=== PATIENT | female | born 1965 | race Caucasian/White ===

== ENCOUNTER 2019-03-14 22:25 | Inpatient (IN) | payer OTHER ==
[2019-03-14 23:20] LABS: #Basophils 0.1 thou/uL (0.0-0.2); #Eosinphils 0.1 thou/uL (0.0-0.7); #Lymphocytes 2.1 thou/uL (1.20-3.40); #Monocytes 0.7 thou/uL (0.11-0.59); #Neutrophils 13.2 thou/uL (1.40-6.50); %Basophils 0.6 % (0.0-1.0); %Eosinophils 0.7 % (0.0-10.0); %Monocytes 4.2 % (0.0-10.0); %Neutrophils 81.5 % (42.0-75.0); Hemoglobin 14.9 g/dL (12.0-16.0); Mean Corpuscular HGB CONC 33.8 g/dL (32.0-36.0); Mean Corpuscular Hemoglobin 31.5 pg (27.0-31.0); Mean Corpuscular Volume 93.2 fL (78.0-98.0); Mean Platelet Volume 9.5 fL (7.4-10.4); Platelet Count 192 thou/uL (130-400); RBC Distribution Width 11.3 % (11.5-14.5); Red Blood Cell (RBC) Count 4.73 mill/uL (4.20-5.40); White Blood Cell (WBC) Count 16.2 thou/uL (4.8-10.8)
[2019-03-14 23:26] LABS: PTT 26.6 SEC (22.9-36.1); Prothrombin Time 12.7 SEC (12.0-14.7)
[2019-03-14] MEDS ORDERED: Fentanyl 100 MCG/2 ML VIAL ONE (23:27)
[2019-03-14 23:41] LABS: ALT (SGPT) 23 U/L (8-55); AST (SGOT) 18 U/L (5-34); Albumin 4.5 g/dL (3.5-5.0); Alkaline Phosphatase 66 U/L (40-150); Anion Gap 11 mmol/L (10-20); BUN (Urea Nitrogen) 19 mg/dL (9.8-20.1); Bilirubin, Total 0.6 mg/dL (0.2-1.2); Calc. Creatinine Clearance 0 mL/min (70-130); Calcium 9.5 mg/dL (7.8-10.44); Carbon Dioxide 28 mmol/L (22-29); Chloride 100 mmol/L (98-107); Estimated GFR-MDRD 65; Globulin 2.4 g/dL (2.4-3.5); Glucose 111 mg/dL (70-105); Potassium 3.6 mmol/L (3.5-5.1); Protein, Total 6.9 g/dL (6.0-8.3); Sodium 135 mmol/L (136-145)
--- NOTE | 2019-03-14 23:45 | RAD ---
2 views right hip: 03/14/2019 COMPARISON: None HISTORY: Fall, trauma, pain FINDINGS: There is an obliquely oriented proximal right femoral neck fracture with impaction as well as proximal and lateral displacement of the distal fracture fragment. No evidence for dislocation. IMPRESSION: Right femoral neck fracture.
--- NOTE | 2019-03-14 23:45 | RAD ---
Portable frontal chest radiograph: 03/14/2019 COMPARISON: None HISTORY: Preoperative patient, right femoral neck fracture FINDINGS: Lungs are clear. Heart and mediastinal contours appear within normal limits. IMPRESSION: No acute findings.
[2019-03-15] MEDS ORDERED: Dextrose 5% in Water 1,000 ML IV PRN (00:51)
[2019-03-15] MEDS ORDERED: hydrALAZINE 20 MG/ML VIAL SLOW IVP PRN (00:51)
[2019-03-15] MEDS ORDERED: Morphine 2 MG/ML SYRINGE SLOW IVP PRN (00:51)
[2019-03-15] MEDS ORDERED: Cyclobenzaprine 10 MG TAB PO PRN (00:51)
[2019-03-15] MEDS ORDERED: Ondansetron PF 4 MG/2 ML Vial IVP PRN (00:51)
[2019-03-15] MEDS ORDERED: Dextrose 50% Abboject 50 ML SYRINGE SLOW IVP PRN (00:51)
[2019-03-15] MEDS ORDERED: Ondansetron ODT 4 MG TAB PO PRN (00:51)
[2019-03-15] MEDS ORDERED: Ketorolac Tromethamine 30 MG/ML VIAL IVP SCH (01:00)
[2019-03-15] MEDS ORDERED: Acetaminophen 1,000 MG in Premix Bag 1 BAG IVPB SCH (01:00)
[2019-03-15] MEDS: Sodium Chloride 0.9% 1,000 ML IV SCH ×2 (02:27→10:00)
[2019-03-15] MEDS: Ketorolac Tromethamine 30 MG/ML VIAL IVP SCH ×4 (02:32→17:54)
[2019-03-15 06:10] LABS: #Monocytes 0.3 thou/uL (0.11-0.59); #Neutrophils 11.6 thou/uL (1.40-6.50); %Basophils 0.3 % (0.0-1.0); %Eosinophils 0.3 % (0.0-10.0); %Lymphocytes 7.8 % (21.0-51.0); %Monocytes 2.4 % (0.0-10.0); %Neutrophils 89.3 % (42.0-75.0); Hemoglobin 14.4 g/dL (12.0-16.0); Mean Corpuscular HGB CONC 33.7 g/dL (32.0-36.0); Mean Corpuscular Hemoglobin 31.3 pg (27.0-31.0); Mean Corpuscular Volume 92.9 fL (78.0-98.0); Platelet Count 183 thou/uL (130-400); RBC Distribution Width 11.2 % (11.5-14.5); Red Blood Cell (RBC) Count 4.61 mill/uL (4.20-5.40)
[2019-03-15 06:31] LABS: Anion Gap 11 mmol/L (10-20); BUN (Urea Nitrogen) 14 mg/dL (9.8-20.1); Calc. Creatinine Clearance 101 mL/min (70-130); Calcium 8.8 mg/dL (7.8-10.44); Carbon Dioxide 24 mmol/L (22-29); Chloride 103 mmol/L (98-107); Estimated GFR-MDRD 85; Glucose 129 mg/dL (70-105); Sodium 134 mmol/L (136-145)
--- NOTE | 2019-03-15 08:22 | PDOC.EVN ---
Event Note - Event Note Event Note: Patient seen and examined. Agree with Walter Garcia note. Plans per orthopedics
[2019-03-15] MEDS ORDERED: CEFAZOLIN 2 GM in Premix Bag 1 BAG IVPB SCH (08:30)
--- NOTE | 2019-03-15 08:43 | RAD ---
EXAM: XR Hip Lt 2-3 View PROVIDED CLINICAL HISTORY: Pain FINDINGS: There is no evidence for fracture or other acute osseous abnormality. Alignment appears anatomic. Shima nt spaces appear preserved. IMPRESSION: No evidence for an acute osseous abnormality. If there is persistent clinical concern, conservative m anagement and follow-up imaging advised.
[2019-03-15] MEDS: Famotidine 20 MG TAB PO SCH ×2 (08:47→20:30)
[2019-03-15] MEDS: Calcium Carbonate + Vit D 1 TAB PO SCH ×2 (08:47→20:30)
[2019-03-15] MEDS: Escitalopram Oxalate 10 mg Tablet PO SCH (08:47)
[2019-03-15] MEDS: Rosuvastatin 10 MG TAB PO SCH (08:47)
--- NOTE | 2019-03-15 08:51 | CON ---
DATE OF CONSULTATION: HISTORY OF PRESENT ILLNESS: We were asked by Trauma in the ER to see the patient. The patient was in normal state of health yesterday when she slipped and fell on a right hip on a tile floor. She was not able to walk after this. No loss of consciousness. No head pain. No numbness or tingling down the right lower extremity. As per the other note, the patient fell going up the stairs a few weeks ago and has had continued left hip pain also. I am going to get a stat x-ray before we hopefully are able to do a total hip replacement on the right. The patient is at bedside with her . Currently, no other complaints. PAST MEDICAL HISTORY: Positive for osteoporosis and tremors in arms. PAST SURGICAL HISTORY: x3, umbilical hernia repair, D and C x2, and she has had some dental prosthesis placed. PAST PSYCHIATRIC HISTORY: A little bit of anxiety. SOCIAL HISTORY: Very rare drinker. No drug or nicotine use. Resides at home with her family. FAMILY HISTORY: Noncontributory for this visit. ALLERGIES: AMOXICILLIN/AUGMENTIN MAKES HER NAUSEATED AND A LITTLE LOOPY. SHE IS ALSO ALLERGIC TO LATEX. CURRENT MEDICATIONS: Lexapro. REVIEW OF SYSTEMS: Tremors in arms, but denies any chest pain, shortness of breath, bowel or bladder issues, and right hip pain. Rest review of systems is negative. PHYSICAL EXAMINATION: GENERAL: Well-nourished, well-developed female, alert, pleasant, in no acute distress. Speech clear. Affect pleasant. Answers questions appropriately. She is alert and oriented x3. HEENT: Normal exam. Face symmetric. Tongue is midline. NECK: Supple. Trachea midline. EXTREMITIES: Upper extremities equal size, shape, symmetry. Normal bulk and tone. Movements equal as are sensations. She has an IV in her right antecubital. Lower extremity exam, pain to the right hip. Remarkably, she has some pain in the left hip also. Otherwise, both extremities, equal size, shape, symmetry, and normal bulk and tone with good sensations and movement of her feet. DP and PT pulses are intact. PELVIS: No plane with rocking. RESPIRATORY: No acute distress. Breathing well. Respirations 16 a minute. ASSESSMENT: Right hip fracture. PLAN: I spoke to the patient about doing a total hip replacement. I went over the risks and benefits of surgery. Their questions and concerns have been addressed and they are amenable to go forth with surgery. We just need to get equipment in. I let the family know that we will keep her n.p.o. until we know if we can get equipment in today. If we are not able to, we will let her have a regular diet, and I will discuss this with Trauma also. The patient and family are happy with the plan. We will work on getting equipment here. We will put her on the surgery schedule today tentatively for surgery. Job ID: [id number]
[2019-03-15] MEDS ORDERED: Fentanyl 100 MCG/2 ML VIAL ONE (11:22)
[2019-03-15] MEDS ORDERED: Famotidine/PF 20 mg/2ml Vial ONE (11:22)
[2019-03-15] MEDS ORDERED: traMADol HCl 50 MG TAB PO PRN (11:56)
[2019-03-15] MEDS ORDERED: Gabapentin 300 MG CAP PO PRN (11:56)
[2019-03-15] MEDS ORDERED: Ibuprofen 600 MG TAB PO PRN (11:56)
[2019-03-15] MEDS ORDERED: Neomycin-Polymyxin 1 ML AMP ONE (11:58)
[2019-03-15] MEDS ORDERED: Clindamycin/D5W 900 mg/50 ml Premix Bag ONE (12:00)
[2019-03-15] MEDS ORDERED: traMADol HCl 50 MG TAB PO SCH (12:00)
[2019-03-15] MEDS ORDERED: HYDROmorphone 2 MG/ML VIAL SLOW IVP PRN (13:57)
[2019-03-15] MEDS ORDERED: Ondansetron HCl/PF 4 MG/2 ML Vial IVP PRN (13:57)
[2019-03-15] MEDS ORDERED: Meperidine HCl/PF 25 MG/ML VIAL SLOW IVP PRN (13:57)
[2019-03-15] MEDS ORDERED: Promethazine HCl 25 MG/ML VIAL IM PRN ×2 (13:57→15:46)
[2019-03-15] MEDS ORDERED: Promethazine HCl 25 MG/ML VIAL SLOW IVP PRN (13:57)
[2019-03-15] MEDS ORDERED: Bupivacaine HCl 0.5%/Epinephrine 1:200,000/PF 30 ml Vial ONE (14:03)
[2019-03-15] MEDS ORDERED: Glycopyrrolate 0.2 MG/ML 5 ML SYRINGE ONE ×2 (14:41→16:06)
--- NOTE | 2019-03-15 15:17 | RAD ---
EXAM: XR Pelvis AP STANDARD PROVIDED CLINICAL HISTORY: Postop COMPARISON: 03/14/2019 FINDINGS: Interval right total hip arthroplasty without evidence for an acute abnormality. IMPRESSION: As above.
--- NOTE | 2019-03-15 15:18 | RAD ---
EXAM: XR Hip Rt 1 View PROVIDED CLINICAL HISTORY: Postop COMPARISON: 03/14/2019 FINDINGS: Right lateral view demonstrates postoperative changes of right total hip arthroplasty. IMPRESSION: As above.
[2019-03-15] MEDS ORDERED: Naloxone HCl 0.4 mg/ml Vial IV PRN (15:46)
[2019-03-15] MEDS ORDERED: diphenhydrAMINE 25 MG CAP PO PRN (15:46)
[2019-03-15] MEDS ORDERED: diphenhydrAMINE 50 MG/ML VIAL IM/IV PRN (15:46)
[2019-03-15] MEDS: Acetaminophen 500 MG TAB PO SCH ×2 (15:58→17:53)
[2019-03-15] MEDS ORDERED: Morphine Sulfate 100 MG in Dextrose 5% in Water 98 ML IV SCH (16:00)
[2019-03-15] MEDS ORDERED: Ondansetron PF 4 MG/2 ML Vial ONE (16:06)
[2019-03-15] MEDS ORDERED: PHENYLEPHRINE-NS 100 MCG/ML 10 ML SYRINGE ONE (16:06)
[2019-03-15] MEDS ORDERED: Rocuronium Bromide 10 MG/ML (10ML VIAL) ONE (16:06)
[2019-03-15] MEDS ORDERED: Lidocaine 1% PF 5 ML VIAL ONE (16:06)
[2019-03-15] MEDS ORDERED: Metoclopramide HCl 10 MG/2 ML VIAL ONE (16:06)
[2019-03-15] MEDS ORDERED: Dexamethasone 20 MG/5 ML VIAL ONE (16:06)
[2019-03-15] MEDS ORDERED: PROPOFOL 200 MG/20 ML VIAL ONE (16:06)
--- NOTE | 2019-03-15 18:56 | PRG ---
DATE OF SERVICE: 03/15/2019 SUBJECTIVE: Ms. Sierra is a 53-year-old female, who is status post ground level fall. She sustained a right hip fracture. She underwent ORIF of right hip fracture yesterday. Postop, the patient reports doing good. Pain is well controlled. Vital signs are stable. She developed no fever or shortness of breath. She voiced no concern. OBJECTIVE: GENERAL: The patient is lying down in bed, comfortable with no acute distress. VITAL SIGNS: Temperature 98.3, heart rate 103, respiratory rate 15, O2 saturation 97% on room air, and blood pressure 110/73. LUNGS: Clear bilaterally. HEART: Regular rate and rhythm. ABDOMEN: Soft and nondistended. EXTREMITIES: Neurovascularly intact x4. NEUROLOGY: No focal neurology deficits. ASSESSMENT: Right hip fracture, status post open reduction and internal fixation of right hip fracture, postoperative day zero. PLAN: Plan will be to continue supportive care. Continue pain control. We will start pharmacology, DVT prophylaxis tomorrow. The patient will be working with PT/OT tomorrow. Plan will be placement in rehab facility. Job ID: [id number]
[2019-03-15] MEDS: Clindamycin/D5W 900 MG in Premix Bag 1 BAG IVPB SCH (20:30)
[2019-03-16] MEDS: Acetaminophen 500 MG TAB PO SCH ×5 (00:11→23:09)
[2019-03-16] MEDS: Ketorolac Tromethamine 30 MG/ML VIAL IVP SCH ×5 (00:12→23:10)
--- NOTE | 2019-03-16 00:38 | PRG ---
DATE OF SERVICE: 03/15/2019 SUBJECTIVE: The patient is currently on the surgical floor. She is status post ground level fall, in which she sustained a right hip fracture. The patient today underwent open reduction and internal fixation of the same. She had no reported issues tonight. Her pain is being controlled with a BUSINESS WRITER. She was unable to work with Physical Therapy today due to returning to the floor at a late hour. She denies nausea, but has not tried to eat anything yet. OBJECTIVE: VITAL SIGNS: Stable. The patient is afebrile. GENERAL: The patient is resting comfortably in bed. She is awake, alert, and oriented x3. Ihsan Coma Scale is 15. HEENT: Unremarkable. LUNGS: Clear to auscultation with good inspiratory and expiratory effort. HEART: Regular rate and rhythm. ABDOMEN: Soft, nontender with active bowel sounds. EXTREMITIES: Neurovascularly intact x4. Postop dressing is clean, dry, and intact. ASSESSMENT: 1. Status post ground level fall. 2. Status post open reduction and internal fixation of right hip fracture. PLAN: Plan will be to continue supportive care. Re-evaluate pain control. Discontinue BUSINESS WRITER when appropriate. Begin physical and occupational therapy and begin discussion of placement. Job ID: [id number]
[2019-03-16] MEDS ORDERED: Ibuprofen 600 MG TAB PO PRN (03:00)
[2019-03-16] MEDS: Clindamycin/D5W 900 MG in Premix Bag 1 BAG IVPB SCH ×2 (03:09→18:23)
[2019-03-16 04:30] LABS: Bacteria/HPF None Seen HPF (None Seen); Bilirubin Negative (Negative); Blood, Urine Negative (Negative); Clarity Clear (Clear); Glucose, Urine (Dipstick) 30 mg/dL (Negative); Leukocyte Negative Leu/uL (Negative); Nitrite Negative (Negative); Protein, Urine (Dipstick) 20 mg/dL (Neg-Trace); RBC/HPF 0-3 HPF (0-3); Squamous Epithelial 0-3 HPF (0-3); Urobilinogen Normal mg/dL (Less than 2); WBC/HPF 0-3 HPF (0-3)
[2019-03-16 04:31] LABS: Urine Culture Reflex No No
[2019-03-16] MEDS: Rosuvastatin 10 MG TAB PO SCH (08:33)
[2019-03-16] MEDS: Escitalopram Oxalate 10 mg Tablet PO SCH (08:33)
[2019-03-16] MEDS: Calcium Carbonate + Vit D 1 TAB PO SCH ×2 (08:33→20:06)
[2019-03-16] MEDS: Famotidine 20 MG TAB PO SCH ×2 (08:33→20:06)
[2019-03-16 09:59] LABS: #Lymphocytes 1.3 thou/uL (1.20-3.40); #Monocytes 0.8 thou/uL (0.11-0.59); #Neutrophils 11.7 thou/uL (1.40-6.50); %Basophils 0.1 % (0.0-1.0); %Eosinophils 0.2 % (0.0-10.0); %Lymphocytes 9.3 % (21.0-51.0); %Monocytes 5.7 % (0.0-10.0); %Neutrophils 84.7 % (42.0-75.0); Hemoglobin 9.1 g/dL (12.0-16.0); Mean Corpuscular HGB CONC 33.9 g/dL (32.0-36.0); Mean Corpuscular Hemoglobin 31.5 pg (27.0-31.0); Mean Corpuscular Volume 92.8 fL (78.0-98.0); Mean Platelet Volume 9.7 fL (7.4-10.4); Platelet Count 155 thou/uL (130-400); RBC Distribution Width 11.2 % (11.5-14.5); Red Blood Cell (RBC) Count 2.88 mill/uL (4.20-5.40); White Blood Cell (WBC) Count 13.8 thou/uL (4.8-10.8)
--- NOTE | 2019-03-16 11:54 | OP ---
DATE OF PROCEDURE: 03/15/2019 PREOPERATIVE DIAGNOSIS: Right displaced subcapital femoral neck fracture. POSTOPERATIVE DIAGNOSIS: Right displaced subcapital femoral neck fracture. PROCEDURE PERFORMED: Right total hip arthroplasty. ANESTHESIA: General. ESTIMATED BLOOD LOSS: 300 mL. CONCRETE BATCH PLANT OPERATOR: Marshall. IMPLANTS: [employer] orthopedic surgical system was used with a P2 porous-coated size 7 femoral stem, FMP acetabular liner, and a 48 mm hemispherical shell with 32 mm diameter femoral head. COMPLICATIONS: None. DRAINS: None. SPECIMENS: None. OUTCOME: Satisfactory. INDICATION FOR PROCEDURE: The patient is a 53-year-old lady who sustained a ground level fall and displaced subcapital femoral neck fracture with some marginal comminution as a result of this fall. The patient has a history of severe osteoporosis. Given the combination of osteoporosis, the very distal nature of this fracture and the mild comminution, we discussed treatment options including, but not limited to, cannulated screw stabilization, hemiarthroplasty or total hip arthroplasty. Given her young age, we have opted to proceed with total hip arthroplasty in hopes of speeding her recovery and return to normal activities of daily living. Informed consent has been obtained. I believe all questions have been answered. DESCRIPTION OF PROCEDURE: The patient was brought to the operating room and a time-out performed followed by induction of general anesthesia. Next, she was positioned in the left lateral decubitus position, and a sterile prep and drape was performed of the right lower extremity. Next, a curvilinear incision was made centered over the greater trochanter of the right hip. After skin was sharply incised, dissection was carried down with electrocautery through the subcutaneous fat, exposing the fascia sven and tensor fascia. This was incised in line with skin incision and reflected anteriorly and posteriorly with a Charnley retractor. Next, the trochanteric bursa was swept off the short external rotators and then an elevator was passed under the abductors exposing the piriformis tendon as well as tendons of the superior and inferior gemelli. The short external rotators were taken off as 1 unit using electrocautery on the posterior aspect of the proximal femur. These were tagged with #1 Vicryl and then reflected posteriorly to help protect the sciatic nerve, which was very superficial in its location. Next, a T-capsulotomy was performed and then fractured femoral head was removed. There were fracture lines that extended all the way up to the base of the femoral head as well as down towards the calcar. An oscillating saw was used to make a femoral neck cut approximately 1 cm proximal to the lesser trochanter. Following this cut, attention was placed to the acetabulum. The acetabulum was free of any bony fragments at the base. A starting reamer was placed into the acetabulum and with very gentle pressure, a significant portion of bone was excised consistent with her severe osteoporosis. A second reamer was applied and with this, there was found to be a penetration of the medial wall. Given the extreme fragility of the bone, the cup was then just further widened up to a size 47 but without any further deepening. A 48-mm cup was then inserted with excellent rim fit, very solid compression, and felt to be no need for screw stabilization. Next, a 10-degree offset liner was applied to the cup. Attention was placed back at the femur. This was repaired using the initial opening T-handle awl followed by the lateralizing product handler and then progressive broaching up to a size 7. A trial reduction was then performed with a size 7 stem and found to have good fit and fill with the +4 head. The trial broach was then removed and the final implants prepared. 3 L normal saline was irrigated through the acetabulum as well as the proximal femur and then the femoral stem applied. There was found to be excellent fit and fill. The head was then inserted and the hip reduced and found to have excellent stability in the 90-90 position with internal rotation. At this point, the wound again irrigated, then closed in layers with #1 Vicryl for the capsule, #1 Vicryl to reapproximate the short external rotators, and #1 Vicryl used for the tensor fascia and fascia sven, 0 Vicryl was for Franki's fascia followed by 2-0 Vicryl and chata for the skin. Xeroform gauze and tape dressing was applied to the lateral thigh and then the patient was transferred to recovery room in stable condition. There were no complications. The patient tolerated the procedure well. Job ID: [id number]
--- NOTE | 2019-03-16 12:26 | HP ---
REQUESTING PHYSICIAN: Dr. Jarrett. ATTENDING SURGEON: Dr. Arzate. CONSULTATIONS: Orthopedics, Dr. Jesus. HISTORY OF PRESENT ILLNESS: The patient is a 53-year-old woman, who was in her bathroom this evening when she tripped and fell landing on her right hip. The patient had significant pain, was unable to ambulate, notified her who called 911. The patient was brought to the emergency department by ground EMS, where she underwent evaluation and examination and was noted to have a right femoral neck fracture at which time we were asked to evaluate the patient for admission and obtain Orthopedic consultation. The patient denied loss of consciousness or any syncopal type event before after her fall. ALLERGIES: PENICILLIN. CURRENT MEDICATIONS: Lexapro. PAST MEDICAL HISTORY: Osteoporosis, anxiety, tremors in arms. PAST SURGICAL HISTORY: x3, D and C x2, umbilical hernia repair. SOCIAL HISTORY: The patient lives at home with her spouse. She denies drug or tobacco use and drinks rarely. REVIEW OF SYSTEMS: A 10-point review of systems is negative except as otherwise stated. PHYSICAL EXAMINATION: VITAL SIGNS: Blood pressure 154/99, heart rate 88, respirations 16, oxygen saturation is 100% on room air, temperature is 98.7. GENERAL: The patient is resting comfortably in bed. She is awake, alert, and oriented x3. Ihsan Coma Scale is 15. HEENT: Head is normocephalic and atraumatic. Eyes, extraocular motions intact. PERRLA bilaterally. Ears are atraumatic without discharge. Nose is atraumatic without discharge. Oropharynx is clear. NECK: Nontender. Trachea is midline. No JVD. CHEST: Clear to auscultation with good inspiratory and expiratory effort. HEART: Regular rate and rhythm. ABDOMEN: Soft, flat, nontender with active bowel sounds. PELVIS: Stable with tenderness to palpation to the right hip consistent with her fracture. EXTREMITIES: Neurovascularly intact x4. BACK: By report is atraumatic and nontender. LABORATORY FINDINGS: White blood cell count 16.2, hemoglobin 14.9, hematocrit 44.1, platelets 192. Sodium 135, potassium 3.6, chloride 100, CO2 of 28, BUN 19, creatinine 0.90, glucose 111. LFTs are unremarkable. PT 12.7, INR 1.0, PTT 26.6. RADIOGRAPHS: AP chest x-ray shows no acute findings. Views of the right hip show a right femoral neck fracture. ASSESSMENT: 1. Status post ground level fall. 2. Right femoral neck fracture. 3. Acute pain secondary to above. 4. History of osteoporosis. 5. History of anxiety. PLAN: Plan will be to admit the patient to the surgical floor. She will be made n.p.o. She will have pain control, pulmonary toilet, gastritis and mechanical VTE prophylaxis. Dr. Jesus has been notified by the emergency department regarding this patient's plan for operative intervention later today. The evaluation, examination, laboratory, and radiographic findings will be discussed with Dr. Arzate after this dictation. Job ID: [id number]
--- NOTE | 2019-03-16 13:35 | PRG ---
DATE OF SERVICE: 03/16/2019 SUBJECTIVE: Ms. Sierra is a 53-year-old female status post ground level fall, sustained right hip fracture, underwent ORIF of right hip fracture postop day 1. Postoperative, the patient reports doing good. Pain is well controlled. Vital signs are stable. She developed no fever or shortness of breath. She voiced no concern. OBJECTIVE: GENERAL: The patient is lying down in bed comfortable with no acute distress. VITAL SIGNS: Temperature 98, heart rate 109, respiratory rate 20, O2 saturation 99% on room air, blood pressure 107/67. LUNGS: Clear bilaterally. HEART: Regular rate and rhythm. ABDOMEN: Soft, nondistended. EXTREMITIES: Neurovascularly intact x4. Dressing clean and intact. NEUROLOGIC: No focal neurology deficits. DIAGNOSIS: Right hip fracture status post open reduction internal fixation of right hip fracture, postop day 1. PLAN: Continue supportive care. Continue pain control. Continue DVT prophylaxis. Encourage working with PT/OT. The patient pending placement in rehab. Job ID: [id number]
[2019-03-16] MEDS ORDERED: HYDROcodone/Acetaminophen 5/325 mg Tablet PO PRN (14:55)
[2019-03-16] MEDS: Ferrous Sulfate 325 MG TAB PO SCH (17:14)
[2019-03-16] MEDS: Ascorbic Acid 500 mg Chewable Tablet PO SCH (20:06)
[2019-03-16] MEDS: Enoxaparin Sodium 40 MG/0.4 ML SYRINGE SC SCH (20:06)
--- NOTE | 2019-03-17 02:55 | PRG ---
DATE OF SERVICE: 03/17/2019 SUBJECTIVE: The patient is currently on the surgical floor. She is status post ground level fall where she sustained a right hip fracture. Today, she underwent right total hip arthroplasty. She has undergone right total hip arthroplasty. Her pain is currently controlled on oral medications. She did work with Physical and Occupational Therapy today, had no reported issues. By report, the patient is tolerating her diet. PHYSICAL EXAMINATION: VITAL SIGNS: Stable. The patient is afebrile. GENERAL: The patient is resting comfortably in bed. She is asleep. She appears in no distress. Due to my late visit, I did not awaken her. Again, the nurses report no current issues. ASSESSMENT AND PLAN: 1. Status post ground level fall. 2. Status post right total hip arthroplasty for a right hip fracture. Plan will be to continue supportive care. Encourage physical and occupational therapy. Job ID: [id number] MTDD
[2019-03-17] MEDS: Acetaminophen 500 MG TAB PO SCH ×3 (05:10→17:56)
[2019-03-17] MEDS: Ketorolac Tromethamine 30 MG/ML VIAL IVP SCH ×2 (05:10→12:29)
[2019-03-17] MEDS: Rosuvastatin 10 MG TAB PO SCH (08:36)
[2019-03-17] MEDS: Ascorbic Acid 500 mg Chewable Tablet PO SCH ×2 (08:36→20:45)
[2019-03-17] MEDS: Calcium Carbonate + Vit D 1 TAB PO SCH ×2 (08:36→20:45)
[2019-03-17] MEDS: Famotidine 20 MG TAB PO SCH ×2 (08:36→20:45)
[2019-03-17] MEDS: Ferrous Sulfate 325 MG TAB PO SCH ×2 (08:36→17:56)
[2019-03-17] MEDS: Escitalopram Oxalate 10 mg Tablet PO SCH (08:37)
[2019-03-17] MEDS ORDERED: Ibuprofen 600 MG TAB PO PRN (18:00)
--- NOTE | 2019-03-17 18:03 | PRG ---
DATE OF SERVICE: 03/17/2019 SUBJECTIVE: Ms. Sierra is a 53-year-old female, status post ground level fall, sustained right hip fracture, underwent ORIF of right hip fracture, postop day #2. Postoperatively, the patient reports doing good. Pain is well controlled. Vital signs have been stable. She has been working with PT and OT. She has been working around the floor with no concern. OBJECTIVE: GENERAL: The patient is lying down in bed comfortably with no acute distress. VITAL SIGNS: Temperature 99, heart rate 76, respiratory rate 18, O2 saturation 98 on room air, and blood pressure 130/74. LUNGS: Clear bilaterally. HEART: Regular rate and rhythm. ABDOMEN: Soft, nondistended. EXTREMITIES: Neurovascularly intact x4. NEUROLOGIC: No focal neurology deficits. ASSESSMENT: 1. Status post ground level fall. 2. Right hip fracture, status post open reduction and internal fixation of right hip fracture, postop day #2. PLAN: Plan will be continue supportive care. Continue pain control. Continue DVT prophylaxis. Encourage working with PT and OT. The patient is pending placement in rehab. Job ID: [id number]
[2019-03-17] MEDS: Enoxaparin Sodium 40 MG/0.4 ML SYRINGE SC SCH (20:45)
--- NOTE | 2019-03-17 22:27 | PRG ---
DATE OF SERVICE: SUBJECTIVE: The patient remains on the surgical floor, she is status post ground-level fall, in which she sustained a right hip fracture and has undergone right total hip arthroplasty. The patient worked with Physical Therapy twice a day and was able to ambulate 200 feet. The patient and her have been working with Case Management for placement. We will attempt rehab, if not, alternate plan is home with home health. The patient is tolerating a diet and her pain is controlled. OBJECTIVE: VITAL SIGNS: The patient is stable. She is afebrile. GENERAL: The patient is resting comfortably in bed. She is awake, alert, conversant, and appropriate. HEENT: Unremarkable. RESPIRATORY: Respirations are nonlabored. SKIN: Postop dressing is clean, dry, and intact. ASSESSMENT/PLAN: 1. Status post ground-level fall. 2. Status post right total hip arthroplasty for right hip fracture. Plan will be to continue supportive care, encourage physical and occupational therapy, and await final determination of placement. Job ID: [id number]
[2019-03-18] MEDS: Acetaminophen 500 MG TAB PO SCH ×4 (01:09→17:35)
[2019-03-18] MEDS ORDERED: traMADol HCl 50 MG TAB PO PRN ×2 (07:54)
[2019-03-18] MEDS: Ascorbic Acid 500 mg Chewable Tablet PO SCH (08:46)
[2019-03-18] MEDS: Rosuvastatin 10 MG TAB PO SCH (08:46)
[2019-03-18] MEDS: Calcium Carbonate + Vit D 1 TAB PO SCH (08:46)
[2019-03-18] MEDS: Ferrous Sulfate 325 MG TAB PO SCH ×2 (08:46→16:14)
[2019-03-18] MEDS: Escitalopram Oxalate 10 mg Tablet PO SCH (08:46)
[2019-03-18] MEDS: Famotidine 20 MG TAB PO SCH (08:46)
[2019-03-18] MEDS: Ibuprofen 800 MG TAB PO SCH ×2 (08:56→16:16)
[2019-03-18] MEDS ORDERED: Polyethylene Glycol 3350 17 GM Packet PO SCH (09:00)
[2019-03-18] MEDS ORDERED: Senokot S 8.6-50 MG TAB PO SCH (09:00)
[2019-03-18 15:30] VITALS: BP 141/84; TEMP 98.3
--- NOTE | 2019-03-18 17:32 | PRG ---
DATE OF SERVICE: 03/18/2019 SUBJECTIVE: Patient was seen this morning, sitting up at edge of bed with no signs of acute distress. PT at bedside reported the patient was able to ambulate quite well with her walker. The patient reports that she does not feel she will have good help at home or anyone to help her get medications and groceries, however, she is amenable to going home with home physical therapy and occupational therapy. OBJECTIVE: VITAL SIGNS: Temperature 99.4, pulse 97, respirations 18, oxygen saturation 95% on room air, blood pressure 146/79. GENERAL: A well-appearing, middle-aged female, sitting up at edge of bed with no signs of acute distress. PULMONARY: Equal chest rise and fall. Clear breath sounds bilaterally. No signs of acute respiratory distress. CARDIAC: Regular rate and rhythm. No murmurs, gallops, or rubs. GI: Abdomen is soft, nontender, nondistended. EXTREMITIES: 2+ pulses in all extremities. No significant swelling noted. Gross motor and sensation are intact. NEUROLOGIC: GCS is 15. LABORATORY FINDINGS: There are no new laboratory findings to discuss. DIAGNOSTIC FINDINGS: There are no new diagnostic findings to discuss. ASSESSMENT: 1. Status post mechanical fall. 2. Right femoral neck fracture, status post repair. 3. History of tremors, osteoporosis, and anxiety. PLAN: maori liaison adviser to speak with the patient to further reassure her admission to rehab when she goes home as needed. maori liaison adviser will discuss the process and services available to her even if she does go home. Case Management is to work with the patient to find home health services of physical and occupational therapy. We will continue her current diet and pain regimen. She is restarted on all of her home medications. We also started a bowel regimen as well. The patient is a little hesitant to go home because of possible lack of help from her family, but we will have the occupational therapist rehab manager talk to her and re-evaluate her tomorrow. In the meantime, we will work to set up home physical and occupational therapy. The patient was seen and examined by Dr. Palencia and myself this morning during rounds. Job ID: [id number]
--- NOTE | 2019-03-19 01:41 | DIS ---
DATE OF ADMISSION: 03/15/2019 DATE OF DISCHARGE: 03/18/2019 ADMISSION DIAGNOSIS: Mechanical fall from standing and right femoral neck fracture. DISCHARGE DIAGNOSIS: Mechanical fall from standing and right femoral neck fracture. CONSULTING PHYSICIAN: Dr. Jesus of Orthopedic Surgery. PROCEDURES PERFORMED: The patient went to the OR on March 15, 2019, and had a right total hip hemiarthroplasty. HOSPITAL COURSE: The patient is a 53-year-old female, who presented to the emergency department after mechanical fall, where she was found to have a right femoral neck fracture. The patient was taken to the OR on March 15, 2019, with Dr. Jesus and had a right total hip hemiarthroplasty. Postoperatively, the patient worked with Physical and Occupational Therapy. She was on a regular diet at the time of discharge and tolerating that well. She was voiding without difficulties and ambulating with 50% weightbearing on the right lower extremity and a walker. At the time of discharge, the patient was set up with home physical and occupational therapy. Her and son live with her. community relations liaison was put in contact with her in case she starts to have higher need that she would be able to still go to inpatient rehab from her home. DISCHARGE DISPOSITION: Home. DISCHARGE CONDITION: Satisfactory. PHYSICAL EXAMINATION: VITAL SIGNS: Temperature 99.4, pulse 97, respirations 18, oxygen saturation 95% on room air, and blood pressure 146/79. GENERAL: Well-appearing middle-aged female, sitting up at edge of bed with no signs of acute distress. PULMONARY: Equal chest rise and fall. Clear breath sounds bilaterally. No signs of acute respiratory distress. CARDIAC: Regular rate and rhythm. No murmurs, gallops, or rubs. GASTROINTESTINAL: Abdomen is soft, nontender, and nondistended. EXTREMITIES: 2+ pulses in all extremities. No significant swelling noted. Gross motor and sensation are intact. NEURO: GCS is 15. DISCHARGE INSTRUCTIONS: The patient is discharged home. Activity as tolerated. 50% weightbearing on the right lower extremity. She has a regular diet. She will have home physical and occupational therapy, incentive spirometry as well as a rolling walker. FOLLOWUP APPOINTMENTS: The patient will follow up with Dr. Jesus in 14 days. No need to see Dr. Palencia with Trauma Surgery. DISCHARGE MEDICATIONS: Include: 1. Tylenol. 2. Calcium plus vitamin D3. 3. Lexapro. 4. Ibuprofen. 5. MiraLAX. 6. Crestor. 7. Tramadol. 8. Aspirin. This is merely a summary of the patient's hospitalization. For full details, please see her medical record in its entirety. Job ID: [id number]
--- NOTE | 2019-03-20 05:04 | PQF ---
GREGORIO HAYES BRYAN DAVID MD [id number] [facility] A [id number] CLINICAL DOCUMENTATION CLARIFICATION FORM: POST DISCHARGE Addendum to original discharge summary date: ____ Late entry note date: __ DATE:03-20-2019 ATTN: Elliott Coats Please exercise your independent, professional judgment in responding to the clarification form. Clinical indicators are provided on the bottom of this form for your review Can you please specify type of fracture based on the below indicatotrs. Please check appropriate box(s): [ ] fracture due to osteoporosis [ ] fracture due to fall [ ] other diagnosis please specify: [ ] unable to determine CLINICAL INDICATORS: H&P p1 03/15-was in her bathroom this evening when she tripped and fell landing on her R hip. H&P p1 03/15-The patient had signifincat pain, was unable to ambulate Operative note p1 03/15-Sustained a ground level fall and displaced subcapital femoral neck fx with some marginal comminution as result of fall Operative note p1 03/15-The patient has a history of severe osteoporosis Operative note p1 03/15-Given the combination of osteoporosis, the very distal nature of this fx and mild comminution, we discussed treatment option RISK FACTORS: H&P p1 03/15-R Femoral neck fracture H&P p1 03/15-Osteoporosis TREATMENTS: H&P p2 03/15-Pain control Dr Ashley Olivares consult 03/15-Orthopedic Consult Operative note p1 03/15-Total R hip Arthroplasty (This form is maintained as a part of the permanent medical record) 2014 [employer]. All Rights Reserved [email or web address] [not provided] MTDD
== END 2019-03-18 17:56 | disposition home health service (06) | DRG 470 ==
LOC: ERS 22:25 → SURG A 03-15 01:15
PROVIDERS: ADMIT Surgery; ATTEND Surgery
PROC: 0SR902Z Replacement of Right Hip Joint with Metal on Polyethylene Synthetic Substitute, Open Approach (ICD-10-PCS; principal; 2019-03-15)
DX: S72.011A Unspecified intracapsular fracture of right femur, initial encounter for closed fracture (principal); W01.0XXA Fall on same level from slipping, tripping and stumbling without subsequent striking against object, initial encounter; M81.0 Age-related osteoporosis without current pathological fracture; F41.9 Anxiety disorder, unspecified; Z97.2 Presence of dental prosthetic device (complete) (partial); Y92.012 Bathroom of single-family (private) house as the place of occurrence of the external cause; Z88.0 Allergy status to penicillin; Z79.899 Other long term (current) drug therapy; Z88.1 Allergy status to other antibiotic agents
CPT/HCPCS: 36415; 71045; 72170; 80048; 80053; 81001; 85025; 85610; 85730; 86850; 86900; 86901; 93005; 96374; J0131; J0670; J0690; J1100; J1650; J1885; J2001; J2274; J2405; J2704; J2765; J3010; J3370; J3490; J7070; S0028